=== PATIENT | male | born 1995 | race Caucasian/White ===

== ENCOUNTER 2019-04-06 09:36 | Emergency (ER) | payer OTHER, SELFPAY ==
--- NOTE | 2019-04-06 10:20 | RAD ---
EXAM: XR Ankle Rt 3 View STANDARD PROVIDED CLINICAL HISTORY: Pain FINDINGS: There is no evidence for fracture or other acute osseous abnormality. Alignment appears anatomic. Madeline nt spaces appear preserved. IMPRESSION: No evidence for an acute osseous abnormality. If there is persistent clinical concern, conservative m anagement and follow-up imaging advised.
== END 2019-04-06 11:41 | disposition home or self-care (01) ==
LOC: ERS 09:36
DX: S93.401A Sprain of unspecified ligament of right ankle, initial encounter (principal); F17.210 Nicotine dependence, cigarettes, uncomplicated; X50.1XXA Overexertion from prolonged static or awkward postures, initial encounter

== ENCOUNTER 2020-09-30 11:09 | Emergency (ER) | payer OTHER, SELFPAY ==
[2020-09-30] MEDS ORDERED: Boostrix 0.5 ML (Tdap) VIAL ONE (14:23)
== END 2020-09-30 14:18 | disposition home or self-care (01) ==
LOC: ERS 11:09
DX: S61.211A Laceration without foreign body of left index finger without damage to nail, initial encounter (principal); F17.210 Nicotine dependence, cigarettes, uncomplicated; W45.8XXA Other foreign body or object entering through skin, initial encounter
CPT/HCPCS: 12001; 90471; 90715

== ENCOUNTER 2021-07-06 18:03 | Emergency (ER) | payer SELFPAY | END 2021-07-06 19:15 | disposition home or self-care (01) | LOC: ERS 18:03 | DX: J02.9 Acute pharyngitis, unspecified (principal); F17.210 Nicotine dependence, cigarettes, uncomplicated | CPT/HCPCS: 99281 ==

== ENCOUNTER 2021-10-26 17:51 | Emergency (ER) | payer SELFPAY ==
[2021-10-27 09:43] LABS: SARS-CoV-2 PCR by NAA DETECTED (NotDetected)
== END 2021-10-26 18:19 | disposition home or self-care (01) ==
LOC: ERS 17:51
DX: U07.1 COVID-19 (principal); F17.200 Nicotine dependence, unspecified, uncomplicated
CPT/HCPCS: 99283; U0003; U0005

== ENCOUNTER 2023-01-05 20:18 | Emergency (ER) | payer SELFPAY ==
[2023-01-05] MEDS ORDERED: Acetaminophen 500 MG TAB ONE (23:54)
[2023-01-06] MEDS ORDERED: Lidocaine 1% w/Epinephrine 1:100K 20 ML VIAL ONE (00:01)
[2023-01-06] MEDS ORDERED: Boostrix 0.5 ML (Tdap) VIAL (>/=7 yrs of age) ONE (00:01)
[2023-01-06] MEDS ORDERED: Bacitracin 1 PK ONE (00:47)
== END 2023-01-06 00:54 | disposition home or self-care (01) ==
LOC: ERS 20:18
DX: S61.411A Laceration without foreign body of right hand, initial encounter (principal); F17.200 Nicotine dependence, unspecified, uncomplicated; W26.9XXA Contact with unspecified sharp object(s), initial encounter
CPT/HCPCS: 12001; 90471; 90715